=== PATIENT | male | born 1990 | race Caucasian/White ===

== ENCOUNTER 2021-03-06 22:15 | Emergency (ER) | payer SELFPAY ==
--- OUTSIDE RECORDS SUMMARY | 2021-03-06 22:18 | XMS REPORT | Continuity of Care Document ---
:1990 Author Organization [facility] t Address [address] [place] [address] Care Team Providers Name Role Phone Correction, Dept Of Primary Care Physician Joby Attending Clinician HIRAM Attending Clinician Unavailable Sissy DENNIS Attending Clinician Unavailable Payers Payer Name Policy Type Policy Number Effective Date Expiration Date S ource Problems Condition Condition Condition Status Onset Resolution Last Treating Co mments Source Name Details Category Date Date Treatment Clinician Date Altered Altered Disease Active Univers mental mental 8-10 ity of status [place] 00:00[place] associated associated 00 Me dical with with Branch intoxicati intoxicati on on Trauma Trauma Disease Active Univers 8-09 ity of 00:00: [place] 00 [facility] Allergies, Adverse Reactions, Alerts Allergy Allergy Status Severity Reaction(s) Onset Inactive Treating Comm ents Source Name Type Date Date Clinician NO KNOWN Drug Active Univers ALLERGIE Class ity of S [facility] Social History Social Habit Start Date Stop Date Quantity Comments Source History SDOH Food Univers ity of Scarcity [facility] History SDOH Food 2019-11-20 2019-11-20 1 Univers ity of Worry 00:00:00 00:00:00 [place] [facility] History SDOH 2019-11-20 2019-11-20 99 University o f Transport Med 00:00:00 00:00:00 [place] [facility] History SDOH 2019-11-20 2019-11-20 1 University o f Transport Non-Med 00:00:00 00:00:00 [place] [facility] Tobacco use and 2019-11-19 2019-11-19 Current user Univers ity of exposure 00:00:00 00:00:00 [facility] Sex Assigned At [birth year] Universit y of 00:00:00 00:00:00 [facility] Smoking Status Start Date Stop Date Source Current every day smoker 2019-11-19 00:00:00 Uni versity of [facility] Medications Ordered Filled Start Stop Current Ordering Indication Dosage Frequency Signature Comments Components Source Medication Medication Date Date Medication? Clinician (SIG) Name Name No known No Univers medications 11-18 ity of 20:07: [place] 19 [facility] Procedures Procedure Date / Time Performed Performing Clinician Sourc e XR CHEST 2 VW 2021-01-21 14:44:36 Ankit Hemphill o f [facility] Encounters Start End Encounter Admission Attending Care Care Encounter Source Date/Time Date/Time Type Type Clinicians Facility Department ID 2021-01-21 2021-01-21 Hospital Martin Hemphill [id number] Univers 09:31:17 23:59:00 Encounter Ankit Saab [facility] [id number] [id number] [facility] 807 Branch 2019-11-19 2019-11-19 Emergency T [facility] STR [id number] Univers 19:49:00 19:49:00 ity of [facility] 2019-11-19 2019-11-19 Emergency X HIRAM [facility] ERT [id number] Univers 17:22:00 17:22:00 HANNAH ity of [facility] 2019-11-19 2019-11-19 Emergency X JEANNIE [facility] ERT [id number] Univers 16:02:00 16:02:00 DANA itreginald [facility] Results This patient has no known results.
[2021-03-06] MEDS ORDERED: MORPHINE 4 MG/ML SYR ONE (22:24)
[2021-03-06] MEDS ORDERED: FAMOTIDINE 20 MG/2 ML VIAL IV ONE (22:25)
[2021-03-06] MEDS ORDERED: ONDANSETRON 4 MG/2 ML VIAL ONE (22:25)
[2021-03-06 22:48] LABS: Urine Blood Negative (Negative); Urine Glucose Negative (Negative); Urine Protein Negative (Negative); Urine Specific Gravity 1.025 (1.005-1.030)
[2021-03-06 23:01] LABS: Basophils % 0.3 % (0-1.3); Hematocrit 45.2 % (39.6-49.0); MPV 7.9 fL (7.6-11.3); RBC Red Blood Cell Count 5.24 M/uL (4.33-5.43)
[2021-03-06 23:14] LABS: Barbiturates NEGATIVE (NEGATIVE); Benzodiazepines NEGATIVE (NEGATIVE); Cocaine NEGATIVE (NEGATIVE); METHAMPHETAM NEGATIVE (NEGATIVE); Methadone NEGATIVE (NEGATIVE); Opiates NEGATIVE (NEGATIVE); Phencyclidine NEGATIVE (NEGATIVE); THC Cannibis NEGATIVE (NEGATIVE)
[2021-03-06 23:19] LABS: ALT/SGPT 62 U/L (12-78); AST/SGOT 28 U/L (15-37); Albumin 3.7 g/dL (3.4-5.0); Alkaline Phosphatase 94 U/L (45-117); BUN Blood Urea Nitrogen 20 mg/dL (7-18); Bicarbonate 25 mmol/L (21-32); Bilirubin Direct 0.1 mg/dL (0-0.2); Bilirubin Total 0.4 mg/dL (0.2-1.0); Glucose Level 117 mg/dL (74-106); Lipase 152 U/L (73-393); Potassium 3.7 mmol/L (3.5-5.1); Protein, Total 8.4 g/dL (6.4-8.2); Sodium Level 142 mmol/L (136-145); Troponin (Emerg Dept Use Only) < 0.02 ng/mL (0.0-0.045)
[2021-03-07] MEDS ORDERED: MAGNES/ALUMIN/SIMET 30ML UCUP ONE (00:02)
[2021-03-07] MEDS ORDERED: LIDOCAINE VISCOUS 2% SOLN 15 ML UDC ONE (00:03)
[2021-03-07] MEDS ORDERED: NA CHLORIDE 0.9% 1,000 ML ONE (00:03)
--- NOTE | 2021-03-07 01:37 | ER ---
Nurse's Notes [facility] Name: Joaquin Lorenz Age: 30 yrs Sex: Male : 1990 Arrival Date: 03/06/2021 Time: 22:18 Bed 7 Private MD: Diagnosis: Upper abdominal pain, unspecified Presentation: 03/06 22:42 Chief complaint: Patient states: chest pain/RUQ pain 1 hour after eating Salami df1 sandwiches. Coronavirus screen: Vaccine status: Patient reports being unvaccinated. Client denies travel out of the [place] in the last 14 days. At this time, the client does not indicate any symptoms associated with coronavirus-19. Ebola Screen: Patient negative for fever greater than or equal to 101.5 degrees Fahrenheit, and additional compatible Ebola Virus Disease symptoms Patient denies exposure to infectious person. Patient denies travel to an Ebola-affected area in the 21 days before illness onset. Initial Sepsis Screen: Does the patient meet any 2 criteria? No. Patient's initial sepsis screen is negative. Does the patient have a suspected source of infection? No. Patient's initial sepsis screen is negative. Risk Assessment: Do you want to hurt yourself or someone else? Patient reports no desire to harm self or others. Onset of symptoms was March 06, 2021 at 20:30. 22:42 Method Of Arrival: EMS: [facility] df1 22:42 Acuity: ANTONIA 3 df1 Triage Assessment: 22:43 General: Appears uncomfortable, Behavior is anxious. Pain: Complains of pain in right df1 upper quadrant Pain currently is 8 out of 10 on a pain scale. EENT: No deficits noted. Neuro: No deficits noted. Cardiovascular: No deficits noted. Respiratory: Respiratory effort is unlabored, labored, Respiratory pattern is regular, symmetrical, Breath sounds are clear bilaterally. GI: No deficits noted. : No deficits noted. Musculoskeletal: No deficits noted. Historical: - Allergies: 22:43 No Known Allergies; df1 - Home Meds: 22:43 Depakote Oral [Active]; HTN meds [Active]; anxiety meds [Active]; bipolar meds df1 [Active]; seizure meds [Active]; - PMHx: 22:43 PTSD; Bipolar disorder; Hypertensive disorder; Hyperlipidemia; Seizure; df1 - PSHx: 22:43 None; df1 - Immunization history:: Client reports having NOT received the Covid vaccine. - Social history:: Smoking status: Patient/guardian denies using tobacco, the patient reports quitting approximately 4 years ago. Screenin:32 Abuse screen: Denies threats or abuse. Denies injuries from another. Nutritional tw5 screening: No deficits noted. Tuberculosis screening: No symptoms or risk factors identified. Risk factors:. Fall Risk None identified. Assessment: 22:32 General: Reports " It was gradually hurting so I tried to burp, then it started to hurt tw5 real bad." Patient states that started about 3 hours ago after eating some turkey, salami, and ham. Pain: Complains of pain in diaphragm and xiphoid area Pain currently is 8 out of 10 on a pain scale. Quality of pain is described as pressure. Neuro: Level of Consciousness is awake, alert, obeys commands, Oriented to person, place, time, situation. Vital Signs: 22:32 BP 126 / 114; Pulse 57; Resp 16; Pulse Ox 99% on R/A; Pain 8/10; tw5 22:47 BP 149 / 95; Pulse 74; Resp 18; Temp 98.0; Pulse Ox 100% on R/A; Weight 97.98 kg; df1 Height 5 ft. 9 in. (175.26 cm); Pain 8/10; 03/07 00:13 BP 139 / 79; Pulse 80; Resp 18; Pulse Ox 100% on R/A; Pain 6/10; df1 03/06 22:47 Body Mass Index 31.90 (97.98 kg, 175.26 cm) df1 ED Course: 03/06 22:18 Patient arrived in ED. mw2 22:19 Good Frausto MD is Attending Physician. 7 22:23 Melissa Baker is Primary Nurse. tw5 22:32 Patient has correct armband on for positive identification. Bed in low position. Call tw5 light in reach. Side rails up X 1. Security at bedside. natural resources instructor on. Pulse ox on. NIBP on. Sitter at bedside. Door closed. Noise minimized. Visitors limited. Moved to private room. Verbal reassurance given. 22:32 Maintain EMS IV. Dressing intact. Good blood return noted. Site clean \\T\\ dry. Gauge \\T\\ tw 5 site: 20 g R forearm. 22:35 Troponin (emerg Dept Use Only) Sent. tw5 22:43 Triage completed. df1 22:43 Arm band placed on right wrist. df1 22:43 UDS Sent. tw5 22:43 Basic Metabolic Panel Sent. tw5 22:43 CBC with Diff Sent. tw5 22:43 Hepatic Function Sent. tw5 22:43 Lipase Sent. tw5 22:46 No provider procedures requiring assistance completed. df1 23:12 UDS Sent. tw5 23:46 Chest Single View XRAY In Process Unspecified. EDMS 03/07 00:08 CT Abd/Pelvis - IV Contrast Only In Process Unspecified. EDMS 01:59 IV discontinued, intact, bleeding controlled, No redness/swelling at site. Pressure df1 dressing applied. Administered Medications: 03/06 22:37 Drug: Pepcid (famotidine) 20 mg Route: IVP; Site: right forearm; tw5 03/07 00:03 Follow up: Response: No adverse reaction tw5 03/06 22:39 Drug: morphine 4 mg Route: IVP; Site: right forearm; tw5 03/07 00:03 Follow up: Response: No adverse reaction; Pain is unchanged, physician notified; RASS: tw5 Alert and Calm (0) 03/06 22:39 Drug: Zofran (Ondansetron) 4 mg Route: IVP; Site: right forearm; tw5 03/07 00:03 Follow up: Response: No adverse reaction tw5 00:14 Drug: GI Cocktail without - (Maalox Suspension 30 ml, Lidocaine Liquid 2 % 15 df1 ml) Route: PO; 00:14 Drug: NS 0.9% 1000 ml Route: IV; Rate: 1000 ml; Site: right antecubital; df1 Outcome: 01:37 Discharge ordered by . 7 01:58 Discharged to Law Enforcement df1 01:58 Condition: good 01:58 Discharge instructions given to patient, police, Instructed on discharge instructions, follow up and referral plans. Demonstrated understanding of instructions, follow-up care. 01:59 Patient left the ED. df1 Signatures: Dispatcher [employer] EDND Anusha Figueroa mw2 Good Frausto MD MD 7 Laura Alvarado df1 Melissa Baker tw5
--- NOTE | 2021-03-07 01:37 | EDPHYS ---
Physician Documentation [facility] Name: Joaquin Lorenz Age: 30 yrs Sex: Male : 1990 Arrival Date: 03/06/2021 Time: 22:18 Bed 7 Private MD: ED Physician Good Frausto HPI: 03/06 22:31 This 30 yrs old Male presents to ER via Unassigned with complaints of Abdominal pain. mh7 22:31 The patient presents with abdominal pain in the epigastric area. Onset: The mh7 symptoms/episode began/occurred today, at 21:00. The symptoms do not radiate. Associated signs and symptoms: Pertinent negatives: nausea, vomiting, and diarrhea, nausea and vomiting, anorexia, blood in stools, chest pain, constipation, diarrhea, dysuria, fever, headache, hematuria, nausea, palpitations, shortness of breath, testicular pain, vomiting, vomiting blood. The symptoms are described as intermittent, vague, waxing/waning. Modifying factors: The symptoms are alleviated by nothing, the symptoms are aggravated by nothing. Severity of pain: At its worst the pain was moderate today, in the emergency department the pain is unchanged. 22:31 Patient reports having upper abdominal pain that started an hour or 2 after eating a mh7 salami sandwich. He denies any chest pain, shortness of breath, nausea, vomiting, diarrhea, fever, or dysuria.. Historical: - Allergies: 22:43 No Known Allergies; df1 - Home Meds: 22:43 Depakote Oral [Active]; HTN meds [Active]; anxiety meds [Active]; bipolar meds df1 [Active]; seizure meds [Active]; - PMHx: 22:43 PTSD; Bipolar disorder; Hypertensive disorder; Hyperlipidemia; Seizure; df1 - PSHx: 22:43 None; df1 - Immunization history:: Client reports having NOT received the Covid vaccine. - Social history:: Smoking status: Patient/guardian denies using tobacco, the patient reports quitting approximately 4 years ago. ROS: 22:31 Constitutional: Negative for fever, chills, and weight loss, Eyes: Negative for injury, mh7 pain, redness, and discharge, ENT: Negative for injury, pain, and discharge, Neck: Negative for injury, pain, and swelling, Cardiovascular: Negative for chest pain, palpitations, and edema, Respiratory: Negative for shortness of breath, cough, wheezing, and pleuritic chest pain, Back: Negative for injury and pain, : Negative for injury, bleeding, discharge, and swelling, MS/Extremity: Negative for injury and deformity, Skin: Negative for injury, rash, and discoloration, Neuro: Negative for headache, weakness, numbness, tingling, and seizure, Psych: Negative for depression, anxiety, suicide ideation, homicidal ideation, and hallucinations, Allergy/Immunology: Negative for hives, rash, and allergies, Endocrine: Negative for neck swelling, polydipsia, polyuria, polyphagia, and marked weight changes, Hematologic/Lymphatic: Negative for swollen nodes, abnormal bleeding, and unusual bruising. Exam: 22:31 Head/Face: Normocephalic, atraumatic. Eyes: Pupils equal round and reactive to light, mh7 extra-ocular motions intact. Lids and lashes normal. Conjunctiva and sclera are non-icteric and not injected. Cornea within normal limits. Periorbital areas with no swelling, redness, or edema. Neck: Trachea midline, no thyromegaly or masses palpated, and no cervical lymphadenopathy. Supple, full range of motion without nuchal rigidity, or vertebral point tenderness. No Meningismus. Chest/axilla: Normal chest wall appearance and motion. Nontender with no deformity. No lesions are appreciated. Cardiovascular: Regular rate and rhythm with a normal S1 and S2. No gallops, murmurs, or rubs. Normal PMI, no JVD. No pulse deficits. Respiratory: Lungs have equal breath sounds bilaterally, clear to auscultation and percussion. No rales, rhonchi or wheezes noted. No increased work of breathing, no retractions or nasal flaring. 22:31 Back: No spinal tenderness. No costovertebral tenderness. Full range of motion. Skin: Warm, dry with normal turgor. Normal color with no rashes, no lesions, and no evidence of cellulitis. MS/ Extremity: Pulses equal, no cyanosis. Neurovascular intact. Full, normal range of motion. Neuro: Awake and alert, GCS 15, oriented to person, place, time, and situation. Cranial nerves II-XII grossly intact. Motor strength 5/5 in all extremities. Sensory grossly intact. Cerebellar exam normal. Normal gait. Psych: Awake, alert, with orientation to person, place and time. Behavior, mood, and affect are within normal limits. 22:31 Constitutional: The patient appears in no acute distress, alert, awake, uncomfortable. 22:31 Abdomen/GI: Inspection: abdomen appears normal, Bowel sounds: normal, in all quadrants, Palpation: moderate abdominal tenderness, in the epigastric area and right upper quadrant, mass, is not appreciated, rebound tenderness, is not appreciated, voluntary guarding, is not appreciated, involuntary guarding, is not appreciated, no appreciated organomegaly, Rectal exam: the exam is deferred, because of patient request, Indicators: McBurney's point is not tender, Martin's sign is negative, Rovsing's sign is negative, Obturator sign is negative, Psoas sign is negative, Liver: no appreciated palpable abnormalities, Hernia: not appreciated. Vital Signs: 22:32 BP 126 / 114; Pulse 57; Resp 16; Pulse Ox 99% on R/A; Pain 8/10; tw5 22:47 BP 149 / 95; Pulse 74; Resp 18; Temp 98.0; Pulse Ox 100% on R/A; Weight 97.98 kg; df1 Height 5 ft. 9 in. (175.26 cm); Pain 8/10; 03/07 00:13 BP 139 / 79; Pulse 80; Resp 18; Pulse Ox 100% on R/A; Pain 6/10; df1 03/06 22:47 Body Mass Index 31.90 (97.98 kg, 175.26 cm) df1 MDM: 01:36 Differential diagnosis: acute coronary syndrome, bowel obstruction, coronary artery mh7 disease, cholecystitis, Cholelithiasis, diverticulitis, gastritis, gastroesophageal reflux disease, non-specific abd pain, pancreatitis, Peptic Ulcer Disease, Ureterolithiasis, urinary tract infection. Data reviewed: vital signs, nurses notes, EMS record, lab test result(s), cardiac enzymes, CBC, electrolytes, urinalysis, urine drug screen. Data interpreted: Pulse oximetry: on room air is 100 %. Interpretation: normal. Counseling: I had a detailed discussion with the patient and/or guardian regarding: the historical points, exam findings, and any diagnostic results supporting the discharge/admit diagnosis, the presence of at least one elevated blood pressure reading (>120/80) during this emergency department visit, lab results, radiology results, the need for outpatient follow up, to return to the emergency department if symptoms worsen or persist or if there are any questions or concerns that arise at home. Response to treatment: the patient's symptoms have resolved after treatment, the patient's blood pressure is in an acceptable range, mental status has returned to baseline, the patient no longer shows bradycardia, the patient is not short of breath, the patient is not tachycardic, the patient's pain is gone, the patient's temperature has normalized. 01:37 Patient medically screened. [facility] 03/06 22:20 Order name: Basic Metabolic Panel; Complete Time: 23:24 [facility] 03/06 22:20 Order name: CBC with Diff; Complete Time: 23:24 [facility] 03/06 22:20 Order name: Hepatic Function; Complete Time: 23:24 [facility] 03/06 22:20 Order name: Lipase; Complete Time: 23:24 [facility] 03/06 22:20 Order name: Troponin (emerg Dept Use Only); Complete Time: 23:24 [facility] 03/06 22:34 Order name: UDS; Complete Time: 23:24 [facility] 03/06 22:43 Order name: CT Abd/Pelvis - IV Contrast Only [facility] 03/06 22:48 Order name: Urine Dipstick-Ancillary; Complete Time: 22:52 [facility] 03/06 22:52 Order name: Chest Single View XRAY [facility] 03/06 22:20 Order name: IV Saline Lock; Complete Time: 22:35 [facility] 03/06 22:20 Order name: Labs collected and sent; Complete Time: 22:35 [facility] 03/06 22:20 Order name: EKG; Complete Time: 22:21 [facility] 03/06 22:20 Order name: EKG - Nurse/Tech; Complete Time: 22:25 [facility] 03/06 22:34 Order name: Urine Dipstick-Ancillary (obtain specimen); Complete Time: 22:43 [facility] Administered Medications: 03/06 22:37 Drug: Pepcid (famotidine) 20 mg Route: IVP; Site: right forearm; 03/07 00:03 Follow up: Response: No adverse reaction 03/06 22:39 Drug: morphine 4 mg Route: IVP; Site: right forearm; 03/07 00:03 Follow up: Response: No adverse reaction; Pain is unchanged, physician notified; RASS: tw5 Alert and Calm (0) 03/06 22:39 Drug: Zofran (Ondansetron) 4 mg Route: IVP; Site: right forearm; tw5 03/07 00:03 Follow up: Response: No adverse reaction tw5 00:14 Drug: GI Cocktail without - (Maalox Suspension 30 ml, Lidocaine Liquid 2 % 15 df1 ml) Route: PO; 00:14 Drug: NS 0.9% 1000 ml Route: IV; Rate: 1000 ml; Site: right antecubital; df1 Disposition Summary: 03/07/21 01:37 Discharge Ordered Location: Home [facility] Problem: new [facility] Symptoms: have improved [facility] Condition: Stable [facility] Diagnosis - Upper abdominal pain, unspecified [facility] Followup: [facility] - With: Private Physician - When: 1 - 2 days - Reason: Worsening of condition, Recheck today's complaints, Continuance of care, Re-evaluation by your physician Discharge Instructions: - Discharge Summary Sheet [facility] - Abdominal Pain, Adult, [id number] [facility] Forms: - Medication Reconciliation Form [facility] - Thank You Letter [facility] - Antibiotic Education [facility] - Prescription Opioid Use [facility] Signatures: Dispatcher [employer] Good Lovelace MD MD [facility] Laura Alvarado df1 Melissa Baker tw5 Corrections: (The following items were deleted from the chart) 01:34 00:53 Abdomen Limited+[id number].RAD.BRZ ordered. SHAMAR IBANEZ
[2021-03-07 02:05] VITALS: TEMP 98; O2SAT 100
[2021-03-07 02:06] VITALS: BP 139/79
--- NOTE | 2021-03-07 11:19 | RAD REPORT ---
EXAM DESCRIPTION: Scarlett Single View03/06/2021 11:46 pm CLINICAL HISTORY: Chest pain COMPARISON: none FINDINGS: The lungs appear clear of acute infiltrate. The heart is normal size IMPRESSION: No acute abnormalities displayed
--- NOTE | 2021-03-07 15:12 | RAD REPORT ---
EXAM DESCRIPTION: CT - Abdomen Pelvis W Contrast - 03/07/2021 3:31 am CLINICAL HISTORY: ABD PAIN COMPARISON: None. TECHNIQUE: CT ABDOMEN PELVIS WITH IV CONTRAST on 03/06/2021 10:43 PM [facility] This exam was performed according to our departmental dose-optimization program, which includes autom ated exposure control, adjustment of the mA and/or kV according to patient size and/or use of iterati ve reconstruction technique. FINDINGS: Lower lungs are clear. Abdomen: The liver is normal in appearance. There is no biliary dilatation. The gallbladder is normal in appearance. The pancreas and spleen are normal in appearance. The adrenal glands and kidneys are unremarkable. Abdominal aorta is normal in course and caliber without aneurysm. There is no free air. There is no r etroperitoneal adenopathy. Pelvis: There is no bowel obstruction. Urinary bladder is unremarkable. There is no free fluid. Appen star is normal. Skeleton: There are no acute osseous findings. No suspicious bony lesions. IMPRESSION: No acute inflammatory process. No renal or ureteral calculi. Electronically signed by: Og Medina MD 03/07/2021 12:16 AM [facility] Due to temporary technical issues with the PACS/Fluency reporting system, reports are being signed by the in house radiologists without review as a courtesy to insure prompt reporting. The interpreting radiologist is fully responsible for the content of the report.
== END 2021-03-07 01:59 | disposition home or self-care (01) ==
LOC: ER 22:15
DX: R10.13 Epigastric pain (principal); I10 Essential (primary) hypertension; F31.9 Bipolar disorder, unspecified
CPT/HCPCS: 93005; 85025; 80048; 36415; 80076; 81003; 84484; 83690; 80307; 74177; 71045; 96375; 96374; 99285; Q9967; J7030; J2405